=== PATIENT | male | born 1950 | race Caucasian/White ===

== ENCOUNTER 2019-05-24 06:48 | Inpatient (IN) | payer MEDICARE, BC ==
[2019-05-24] MEDS ORDERED: NS 0.9% 1000 ML** 1,000 ML IV SCH (08:00)
[2019-05-24] MEDS ORDERED: HYDROmorphone INJ1* 1 MG/ML SYRINGE IV SLOW PU PRN (08:41)
[2019-05-24] MEDS: Pantoprazole* 80 mg IN NS 80 MG/250 ML BAG IV SCH ×2 (09:02→21:01)
--- NOTE | 2019-05-24 10:26 | HP ---
CC: Dr. Ranjit Caldwell; [facility] * HISTORY AND PHYSICAL: DATE OF ADMISSION: 05/24/19 PRIMARY CARE DOCTOR: Dr. Ranjit Caldwell. HISTORY OF PRESENT ILLNESS: I was contacted in the overnight by the physician assistant toddler teacher admitting service at [facility] with regard to Mr. Shields stating that he was 68-year-old gentleman who presented to the emergency room last night with severe abdominal pain. Workup was negative including CAT scan and labs and the patient was admitted for observation. The patient worsened in the overnight, spiked fever to 104, underwent an x-ray which showed free air under the diaphragm at approximately 4 o'clock a.m. and the patient went for a CT scan. CT scan was with IV contrast and the images were reviewed. It shows a large amount of free air under the diaphragm along with free fluid and I asked the patient to be sent to the emergency room. I was told that this will not be available since the patient has already been admitted to the hospitalist service and I requested the patient to be transferred from hospitalist to hospitalist. This was agreed upon apparently and the patient was transferred here. The patient gives a history of 2 weeks of upper abdominal pain with nausea, vomiting, and weight loss. The patient had been worked up including an ultrasound of the gallbladder, which showed sludge, but no stones. He was in the process of getting a HIDA scan through his primary care doctor when his pain worsened and was much more acute. He presented to the ER with this complaint. He had no appetite, had difficult time moving. Pain was exacerbated with movement, relieved with narcotics. The patient was given narcotics with minimal effect in the emergency room, but then improved with what he says was ibuprofen. I am not able to view this med rec sheet. He was also burping a fair amount as well. He denied any constipation or obstipation. PAST MEDICAL HISTORY: Kidney stones and history of thyroiditis. PAST SURGICAL HISTORY: Right inguinal hernia repair, stents for nephrolithiasis , and a tonsillectomy remotely. MEDICATIONS: Really none. The patient had been taking Tums leading up to this. Generally does not take medications. FAMILY HISTORY: Contributory for esophageal cancer in his father as well as colon cancer requiring a colostomy. SOCIAL HISTORY: He quit smoking 9 months ago. He lives with his . He denies alcohol use or IV drug use. He is retired. REVIEW OF SYSTEMS: No shortness of breath. The patient has good exercise tolerance at baseline. He denies any cardiac disease. Abdominal pain as described. He takes Tums intermittently. He was told he has possible gallbladder disease. He denies any dysuria. No constipation or obstipation. The patient has had colonoscopy in the past with polyps and diverticula. The patient has had EGD because of his father's esophageal cancer and this was suggestive of a hiatal hernia. These were done at [facility] and I do not have the reports. No endocrine disorders. No headaches. No bleeding or clotting disorders. No psychiatric illnesses. PHYSICAL EXAMINATION GENERAL: He is alert and oriented x3. He is in mild distress. VITAL SIGNS: The patient's temperature is 100.2, heart rate 120, blood pressure 127/83, O2 sat 94, respiration rate 21. HEAD, EYES, EARS, NOSE, AND THROAT: Normocephalic, atraumatic. Sclerae are anicteric. Mucous membranes are dry. NECK: No lymphadenopathy. LUNGS: Clear to auscultation at the apices. Positive CVA tenderness on the right. ABDOMEN: Tense, tender with positive voluntary guarding and involuntary guarding and negative rebound. EXTREMITIES: Within normal limits. No mottling, no pitting edema. RECTAL: Not performed. DIAGNOSTIC STUDIES/LAB DATA: Labs through the other hospital show white count of 14, H and H 14/43. Chemistry panel reviewed. The patient had had an amylase that was normal and LFTs that were within normal range. Calcium was mildly elevated. Lactic acid was also 2.7 yesterday evening. Blood cultures were taken on patient's slight fever. CAT scan reviewed. No report available for the second CAT scan the patient received during the hospital at [place]. The patient perhaps did receive a dose of ertapenem at 4 a.m. this morning according to report as well as Flagyl. IMPRESSION: A 68-year-old gentleman otherwise healthy with 2-week prodrome of abdominal pain mostly in the upper abdomen with nausea, vomiting, and possibly ulcer oriented, who now has significant free air and acute abdomen on evaluation , most likely consistent with perforated stomach or duodenal ulcer. I told the patient he would need the operating room as my recommendation. He agreed. He would like to proceed in this fashion, talked about the possibility of laparoscopy versus laparotomy. The patient is okay. I have also talked about the possibility of a different surgeon doing the procedure, which he is okay with. We talked about Shaw plication versus resection and various reconstruction methods namely possibility of a Alejandrina Y gastric bypass versus the possibility of this being a colon disease and requiring colostomy. The patient is aware of this. His questions were answered. He is getting IV fluids. He will have a Adams catheter placed. No NG tube is necessary at this time. The patient has been given antibiotics and will be given another dose before the surgery and the patient is aware of the plan and the nursing staff as well. I will be contacting the critical care team as well for evaluation. [id number]/[facility] #: [id number] MTDD
[2019-05-24] MEDS ORDERED: Propofol* 10 MG/ML 20 ML BTL ONE (10:29)
[2019-05-24] MEDS ORDERED: Midazolam* 1 MG/ML 5 ML VIAL (5 MG) ONE (10:30)
[2019-05-24] MEDS ORDERED: Rocuronium* 10 MG/ML VIAL ONE (10:30)
[2019-05-24] MEDS ORDERED: fentaNYL* 50 MCG/ML 2 ML VIAL (100 MCG VIAL) ONE ×2 (10:30→12:46)
[2019-05-24] MEDS ORDERED: Bupivacaine 0.25% EPI 200,000* 30 ML SDV ONE (10:34)
[2019-05-24] MEDS ORDERED: metroNIDAZOLE IV 500 MG/100ML* 500 MG/100 ML BAG IVPB ONE (11:02)
[2019-05-24] MEDS ORDERED: Ciprofloxacin 400MG IVPREMIX(* 400 MG/200 ML BAG ONE (11:02)
[2019-05-24] MEDS ORDERED: Clindamycin 900 MG/D5W BAG(*) 900 MG/50 ML BAG IVPB ONE (11:16)
[2019-05-24] MEDS ORDERED: Norepinephrine VIAL* 1 MG/ML 4 ML VIAL ONE (12:08)
[2019-05-24] MEDS ORDERED: Phenylephrine 40 MCG/ML SYRINGE ONE (12:08)
--- NOTE | 2019-05-24 12:30 | CONS ---
CC: Dr. Banks; Dr. Kaleb Jama CONSULTATION DATE OF ADMISSION: 05/24/19 PRIMARY CARE PROVIDER: Dr. Kaleb Jama. CHIEF COMPLAINT: Abdominal pain, sent from [facility] because of pneumoperitoneum. HISTORY OF PRESENTING ILLNESS: This is a 68-year-old male with past medical history of gastritis, hiatal hernia, who had presented to the emergency room at [facility] because of abdominal pain. The patient reports that for the past week, he had been dealing with constipation and about 3 days prior to admission he took Dulcolax, after which he had a bowel movement. Yesterday, he started to experience 11/10 pain, it was generalized pain, however more noticeable at the left lower quadrant and the left upper quadrant, associated with nausea and vomiting. The pain is described as a sharp pain that comes in spasms; however, the pain is always there with no relation to activity or food intake. He has decreased appetite since the pain started. Since the pain started, he has not had a bowel movement. He decided to go to the emergency room at [facility] for further evaluation and care. In the emergency room at [facility], he had basic imaging and lab work done , at which point, they found him to have pneumoperitoneum and the patient was given IV fluids, pain medication along with ertapenem and Flagyl and pantoprazole and nausea medication. Subsequently, the patient was then referred to our hospital and was transferred here for further evaluation and care. Here, the patient has been evaluated by general surgeon, Dr. Banks, plan is for the patient to go to the operating room today for the definitive treatment and diagnosis for the pneumoperitoneum. PAST MEDICAL HISTORY: Includes gastritis, hiatal hernia, kidney stones, hemorrhoids, BPH. PAST SURGICAL HISTORY: Includes inguinal hernia. ALLERGIES: Include WELLBUTRIN, BUPROPION, KEFLEX, CIPRO, PENICILLIN, VALACYCLOVIR. FAMILY HISTORY: Mother: Dementia. Father: Esophageal cancer, colon cancer, hypertension, ulcer. SOCIAL HISTORY: The patient lives at home, is , former smoker 1 to 2 packs per day, quit about 9 months ago, no alcohol use. HOME MEDICATIONS: 1. Soma as needed 2. Ambien as needed 3. Tums as needed. REVIEW OF SYSTEMS: He was noted to have subjective fever at home and was found to have fever at the emergency room in [place], fever of 104. HEENT: Not have any issues with his hearing or vision, no sore throat. Reports that he does have trouble taking a deep breath because of abdominal pain; however, no cough, no sputum protection. He does not have any chest pain, no palpitation. Gastrointestinal: See HPI. He does not have any polyuria, trouble with urination, no burning with urination, there are no rashes or lesions. Musculoskeletal: No reported back pain. Skin: No rashes or lesions. Neurological: Reports no headaches, no focal weakness and numbness. Hematological/lymphatic: He does not have any history of easy bruising or recent bleeding episodes. PHYSICAL EXAMINATION GENERAL: This is a well-developed, well-nourished male, lying in an ICU bed in mild distress. VITAL SIGNS: Here, the blood pressure is 127/83, saturation of 94% on room air , respiratory rate of 21, heart rate of 126, temperature here of 100.2 Fahrenheit. HEENT: Pupils are equal, round, and reactive to light, atraumatic, normocephalic. There is no oropharyngeal erythema, oral mucosa is dry, there is no nystagmus. LUNGS: Mild tachypnea with no use of accessory muscles. Lungs are clear with no wheezing, rales, or rhonchi. HEART: There is no chest wall tenderness, regular tachycardia with no murmurs, rubs or gallops. ABDOMEN: Bowel sounds are hypoactive on the left side. Abdomen is soft with generalized tenderness with some guarding; however, no rigidity, no rebound tenderness. Negative Segal's sign. EXTREMITIES: Radial pulses 2+ bilaterally, there is no calf tenderness, no lower extremity edema. NEUROLOGICAL: Alert and oriented x3 with no focal neurological deficit. SKIN: There are no rashes or lesions. Skin is warm and dry. PSYCHIATRIC: The patient is calm and appropriate, with no thoughts of hurting himself or anyone else. IMAGING AND LABORATORY DATA: The patient had a CT of the abdomen and pelvis done at [facility], which showed large pneumoperitoneum with moderate free fluid in the abdomen consistent with perforation of hollow viscus, inflamed gastric pylorus, and proximal duodenum suggestive of perforated peptic ulcer. There is bilateral nonobstructing nephrolithiasis. There is colonic diverticulosis. There is gallbladder sludge, mildly enlarged prostate. There is no acute diverticulitis. The patient also had labs done, which showed a sodium of 140, potassium of 3.6, chloride of 102, bicarb of 25, BUN of 18, creatinine of 1.5, lactic acid of 2.7 , alkaline phosphatase of 96, troponin of 0.01, albumin of 3.6, TSH of 3.48. Also, there was WBC of 14, RBC of 4.83, hemoglobin of 14.7, hematocrit of 43, platelets of 291. Urinalysis was clear with pH of 6.5, negative for nitrites, negative for bilirubin, 1+ blood, 1+ ketones. IMPRESSION AND PLAN: 1. Pneumoperitoneum: This likely is secondary to perforated ulcer as reported in the CAT scan report. The patient will be placed n.p.o., continue IV fluids, we will start pain control. Surgery has evaluated the patient. Plan is for the patient to go to the operating room. At this point, continue pantoprazole drip, Zofran as needed for nausea. Continue ICU level of care. I will start the patient empirically on antibiotics to cover for GI pathology. I will also obtain CBC and CMP as we do not have one in our system yet. Of note, the patient also had a repeat blood work at [facility] this morning, which revealed WBC of 2.62 as well as hemoglobin of 13.1, hematocrit of 37.8. At this point, the patient does meet systemic inflammatory response syndrome criteria. 2. DVT prophylaxis. We will start the patient on sequential compression device. 3. Code status: FULL CODE. [id number]/[facility] #: [id number] MTDD
[2019-05-24] MEDS ORDERED: Sugammadex * 200 MG/2 ML VIAL IV PUSH ONE (12:59)
[2019-05-24] MEDS ORDERED: HYDROmorphone PCA* 20 MG/20 ML PCA.SYRING ONE (13:47)
[2019-05-24] MEDS: Lactated Ringers 1000 ML Bag* 1,000 ML IV SCH ×2 (14:38→20:17)
[2019-05-24] MEDS: NS 0.9% 1000 ML** 1,000 ML IV SCH (14:43)
[2019-05-24 15:45] LABS: Urine Appearance Clear; Urine Bacteria Absent (Absent); Urine Bilirubin Negative (Negative); Urine Blood 1+ (Negative); Urine Color Yellow; Urine Glucose Negative (Negative); Urine Ketones Negative (Negative); Urine Nitrite Negative (Negative); Urine Protein 1+(30 mg/dL) (Negative); Urine Red Blood Cell 2+(6-10/hpf) (Absent); Urine Specific Gravity 1.027 (1.010-1.030); Urine Urobilinogen Positive (Negative); Urine White Blood Cell Trace(0-5/hpf) (Absent)
[2019-05-24] MEDS ORDERED: HYDROmorphone PCA* 20 MG/20 ML PCA.SYRING PCA SCH (16:00)
[2019-05-24] MEDS: Aztreonam (*) 1 GM in NS 0.9% 50 ML* 50 ML IVPB SCH ×2 (16:24→18:07)
[2019-05-24] MEDS: metroNIDAZOLE IV 500 MG/100ML* 500 MG/100 ML BAG IVPB SCH ×2 (16:24→20:57)
[2019-05-25] MEDS: Lactated Ringers 1000 ML Bag* 1,000 ML IV SCH ×4 (01:20→17:54)
[2019-05-25] MEDS: Aztreonam (*) 1 GM in NS 0.9% 50 ML* 50 ML IVPB SCH ×3 (02:38→17:54)
[2019-05-25] MEDS: metroNIDAZOLE IV 500 MG/100ML* 500 MG/100 ML BAG IVPB SCH ×3 (03:26→18:55)
[2019-05-25] MEDS: NS 0.9% 1000 ML** 1,000 ML IV SCH (06:04)
[2019-05-25] MEDS: Pantoprazole* 80 mg IN NS 80 MG/250 ML BAG IV SCH ×2 (06:10→16:22)
[2019-05-25 06:20] LABS: Hematocrit 38 % (42-52); Hemoglobin 12.7 g/dL (14.0-18.0); Mean Corpuscular HGB Conc 33 g/dL (31-36); Mean Corpuscular Hemoglobin 30 pg (27-31); Mean Corpuscular Volume 91 fL (80-94); Mean Platelet Volume 9.1 fL (7.4-10.4); Platelet Count 161 10^3/uL (150-450); Red Blood Count 4.19 10^6 /uL (4.18-5.48); Red Cell Distribution Width 15 % (10-15); White Blood Count 13.3 10^3/uL (3.5-10.8)
[2019-05-25 06:51] LABS: Albumin 2.7 g/dL (3.2-5.2); Calcium 9.1 mg/dL (8.6-10.3); Potassium 4.4 mmol/L (3.5-5.0)
[2019-05-25 06:57] LABS: Albumin/Globulin Ratio 1.5 (1-3); BUN/Creatinine Ratio 20.9 (8-20); Globulin 1.8 g/dL (2-4); Total Protein 4.5 g/dL (6.4-8.9)
[2019-05-25 08:28] LABS: ABS Lymphocytes 0.7 10^3/ul (1.0-4.8); ABS Monocytes 0.7 10^3/ul (0-0.8); ABS Neutrophils 11.8 10^3/ul (1.5-7.7); Lymphocyte % 5.6 %
--- NOTE | 2019-05-25 10:44 | PN ---
Subjective Date of Service: 05/25/19 Interval History: Pt is feeling ok. He continues to have fairly significant discomfort when taking a deep breath or moving. Overall however he states he feels much better than when he arrived to [facility]. He has no nausea. He does have dry mouth. No flatus. Objective Active Medications: Pantoprazole Sodium (Protonix Iv Bag*) 80 mg in 250 mls @ 25 mls/hr IV Q10H [facility] ; Protocol Last Admin: 05/25/19 06:10 Dose: 25 mls/hr Aztreonam 1 gm/ Sodium (Chloride) 50 mls @ 200 mls/hr IVPB Q8H [facility] Last Admin: 05/25/19 02:38 Dose: 200 mls/hr Metronidazole/Sodium Chloride (Flagyl 500 Mg Ivpb*) 500 mg in 100 mls @ 100 mls /hr IVPB Q8H [facility] Last Admin: 05/25/19 03:26 Dose: 100 mls/hr Lactated Ringer's (Lactated Ringers 1000 Ml Bag*) 1,000 mls @ 200 mls/hr IV PER RATE [facility] Last Admin: 05/25/19 07:45 Dose: 200 mls/hr Sodium Chloride (Ns 0.9% 1000 Ml) 1,000 mls @ 30 mls/hr IV PER RATE [facility] Last Admin: 05/25/19 06:04 Dose: 30 mls/hr Hydromorphone HCl (Dilaudid Supervising Broker*) 20 mg in 20 mls @ 0 mls/hr OIL FIRE SPECIALIST .change Q24H [facility]; Protocol Ondansetron HCl (Zofran Inj*) 4 mg IV Q6H PRN PRN Reason: NAUSEA Vital Signs - 8 hr 05/25/19 05/25/19 05/25/19 03:00 03:24 04:09 Temperature 98.7 F Pulse Rate 88 Respiratory 18 16 17 Rate Blood Pressure 117/69 (mmHg) O2 Sat by Pulse 99 98 99 Oximetry 05/25/19 05/25/19 05/25/19 06:05 07:00 07:29 Temperature 97.4 F Pulse Rate 81 Respiratory 17 16 16 Rate Blood Pressure 114/66 (mmHg) O2 Sat by Pulse 96 97 98 Oximetry 05/25/19 05/25/19 05/25/19 08:00 08:21 08:24 Temperature Pulse Rate Respiratory 16 16 16 Rate Blood Pressure (mmHg) O2 Sat by Pulse 96 96 Oximetry 05/25/19 09:00 Temperature Pulse Rate Respiratory 16 Rate Blood Pressure (mmHg) O2 Sat by Pulse 96 Oximetry Oxygen Devices in Use Now: Nasal Cannula Appearance: Middle aged male lying in bed, NAD Eyes: No Scleral Icterus Ears/Nose/Mouth/Throat: Mucous Membranes Moist Respiratory: Symmetrical Chest Expansion and Respiratory Effort, Clear to Auscultation - anteriorly Cardiovascular: NL Sounds; No Murmurs; No JVD, RRR, No Edema Abdominal: - - BS+ soft, ND, tender Extremities: No Clubbing, Cyanosis Skin: No Nodules or Sclerosis Neurological: Alert and Oriented x 3 Result Diagrams: 05/25/19 05:54 05/25/19 05:54 Microbiology and Other Data: Microbiology 05/24/19 08:55 Nasal Screen MRSA (PCR) - Final Nasal Mrsa Not Detected Assess/Plan/Problems-Billing Mr Shields is a 68 yo M who has no significant PMHx who presented initally to [facility] with c/o abdominal pain which acutely worsened while at [facility] and was found to have pneumoperitoneum and transferred to [facility] for surgical evaluation. - Patient Problems (1) Perforated gastric ulcer Current Visit: Yes Status: Acute Code(s): K25.5 - CHRONIC OR UNSPECIFIED GASTRIC ULCER WITH PERFORATION SNOMED Code(s): 2520616 Comment: Pt is POD#1 from Shaw plication of perforated gastric ulcer and abdominal washout. He remains NPO with NG tube in place. MICHI drain with turbid yellow/brown fluid, scant drainage on dressing (dressing not removed by myself) . Continue aztreonam and flagyl. Will discuss with ID how long to continue Abx. Continue OIL FIRE SPECIALIST for pain control. He states he had a slight "habit" with narcotics when he was younger and wishes to minimize narcotic use but understands in the acute phase his pain should be adequately controlled. Await further recommendations from surgery. (2) DVT prophylaxis Current Visit: Yes Status: Acute Code(s): Z29.9 - ENCOUNTER FOR PROPHYLACTIC MEASURES, UNSPECIFIED SNOMED Code(s): 432475339 Comment: Start SQ heparin when ok'ed by surgery. (3) Full code status Current Visit: Yes Status: Acute Code(s): Z78.9 - OTHER SPECIFIED HEALTH STATUS SNOMED Code(s): 728831964
[2019-05-25] MEDS: Influenza VAC *QUAD* 2019-20* 0.5 ML SYRINGE IM ONE ×2 (11:30→11:40)
[2019-05-25] MEDS: Pneumococcal *Vac Polyvalent 0.5 ML VIAL IM ONE ×2 (11:31→11:39)
--- NOTE | 2019-05-25 12:56 | PN ---
Progress Note - Progress Note Date of Service: 05/25/19 Note: S: Patient seen w/ Dr. Banks ~ 0900 this a.m. Feels much better vs before surgery, though is using SECURITY SOFTWARE ENGINEER q 1-2 hr. c/o dry mouth. Wants ice cream. O: Vital Signs - 8 hr 05/25/19 05/25/19 05/25/19 06:05 07:00 07:29 Temperature 97.4 F Pulse Rate 81 Respiratory 17 16 16 Rate Blood Pressure 114/66 (mmHg) O2 Sat by Pulse 96 97 98 Oximetry 05/25/19 05/25/19 05/25/19 08:00 08:21 08:24 Temperature Pulse Rate Respiratory 16 16 16 Rate Blood Pressure (mmHg) O2 Sat by Pulse 96 96 Oximetry 05/25/19 05/25/19 05/25/19 09:00 11:00 11:42 Temperature 98.4 F Pulse Rate 100 Respiratory 16 18 16 Rate Blood Pressure 106/82 (mmHg) O2 Sat by Pulse 96 94 97 Oximetry 05/25/19 12:00 Temperature Pulse Rate Respiratory 17 Rate Blood Pressure (mmHg) O2 Sat by Pulse 93 Oximetry Intake and Output Last 24 Hours 05/23/19 05/24/19 05/25/19 05/26/19 06:59 06:59 06:59 06:59 Intake Total 7417 913 Output Total 1911 60 Balance 5506 853 Weight 171 lb 8 oz Intake: IV Fluids 7157 858 CLINDAMYCIN 900MG IV 50 LR 5980 858 NS (0.9%) 800 Protonix 327 IVPB 160 55 ABX - AZTREONAM 50 55 ABX - FLAGYL 110 Oral 0 NG Tube Irrigate Amount 100 Output: NG Tube Drainage Amount 220 MICHI #1 390 40 MICHI #2 130 20 Adams 1121 Estimated Blood Loss 50 Other: # Bowel Movements 0 # Voids 0 Gen: appears comfortable; NAD Heart: reg Lungs: clear Abd: MICHI drains serosang; moderate drainage on dsg; few BS; somewhat firm, diffusely tender per Dr. Banks's exam A: s/p laparoscopic terry patch of perf'd gastric ulcer, improving P: will keep NG for now; UGI tomorrow a.m. Cont IV PPI
[2019-05-25] MEDS: Phenol 1.4% Spray* 177 ML BTL MT PRN ×2 (16:22→23:54)
--- NOTE | 2019-05-25 22:02 | OP ---
CC: Dr. Kaleb Jama; [facility] * DATE OF OPERATION: 05/24/19 - ROOM #338 DATE OF : 54 SURGEON: Amado Banks MD. COAT REPAIR INSPECTOR: Radha Rodriguez NP. ANESTHESIOLOGIST: Dr. Shultz. ANESTHESIA: General. PRE-OP DIAGNOSIS: Acute abdomen. POST-OP DIAGNOSIS: Perforated gastric ulcer, prepyloric. OPERATIVE PROCEDURES: Diagnostic laparoscopy abdominal washout, biopsy of perforated ulcer, and Shaw plication of perforated gastric ulcer. ESTIMATED BLOOD LOSS: 50 cc. FLUIDS: Crystalloid fluid given. See anesthesia record for details. SPECIMEN: Portion of stomach ulcer. DRAINS: Two #10 MICHI drains left in the intraabdominal space. The right upper quadrant one was over the Shaw plication and under the liver, the lower one was at the mid abdomen anteriorly. COMPLICATIONS: None. DESCRIPTION OF PROCEDURE: The patient was identified in the preoperative area. He was marked, consented, brought to the operating room, and placed on the operating table in the supine position. Preoperative antibiotics given. Sequential devices were placed on the bilateral lower extremities. General anesthesia was induced. Adams catheter was inserted. The patient's abdominal hair was clipped, and the abdomen was prepped and draped in standard surgical fashion x4. Cutdown technique was performed at the periumbilical region and cutdown technique down to the abdomen. Air was expressed upon entry, but no fluid and a 12 mm trocar was inserted. This was later changed for a balloon type trocar. Camera was inserted. There was a significant amount of murky fluid throughout the abdomen. Additional trocars were then placed in the following position, a 5 mm in the right upper quadrant and a 5 mm in the right lower quadrant. Attention was turned towards the anterior aspect of the stomach. An opened ulcer was noted, prepyloric. It was approximately 1 cm in size. The gallbladder appeared normal. There was fluid over the liver and over the spleen well throughout the abdomen. After suctioning out the fluid, attention was turned towards the ulcer. A biopsy was then performed and passed off. This was mostly mucosa, which appeared pink, but not malignant appearing. We then placed 3-0 silk sutures, 4 individual sutures in all, through and through the ulcer. Next, with cautery, we were able to make a tongue of omentum and place this over the ulcer, and we plicated this on to our ulcer and tied our silk sutures. The ulcer was obscured after the closure of this. We then placed two #10 MICHI drains in the abdomen, placed one at [place] pouch, extending it towards the ulcer and just anterior to this, and this was brought out through the right upper quadrant 5 mm port site, sutured to the skin with 3-0 Prolene suture, and another drain was placed in the mid abdomen and brought out through the right lower quadrant incision and sutured similarly. The abdomen was allowed to collapse and trocar was removed under direct vision. It should be noted that we did irrigate approximately 4 L of warm saline prior to closing the abdomen. The anterior fascia of the umbilical port site was reapproximated with interrupted #1 Vicryl sutures and skin incision at this site was closed with 4- 0 Monocryl subcuticular sutures followed by Steri-Strips and sterile dressing. The patient tolerated the procedure well and was transferred to the PACU in stable condition. [id number]/[facility] #: [id number] FAYE
[2019-05-26] MEDS: Lactated Ringers 1000 ML Bag* 1,000 ML IV SCH ×3 (00:16→19:17)
[2019-05-26] MEDS: Pantoprazole* 80 mg IN NS 80 MG/250 ML BAG IV SCH (02:20)
[2019-05-26] MEDS: Aztreonam (*) 1 GM in NS 0.9% 50 ML* 50 ML IVPB SCH ×3 (02:20→18:12)
[2019-05-26] MEDS: metroNIDAZOLE IV 500 MG/100ML* 500 MG/100 ML BAG IVPB SCH ×3 (03:17→19:18)
[2019-05-26 05:51] LABS: Hematocrit 36 % (42-52); Hemoglobin 12.3 g/dL (14.0-18.0); Mean Corpuscular HGB Conc 34 g/dL (31-36); Mean Corpuscular Hemoglobin 31 pg (27-31); Mean Corpuscular Volume 90 fL (80-94); Mean Platelet Volume 9.4 fL (7.4-10.4); Platelet Count 165 10^3/uL (150-450); Red Blood Count 4.01 10^6 /uL (4.18-5.48); Red Cell Distribution Width 15 % (10-15); White Blood Count 12.2 10^3/uL (3.5-10.8)
[2019-05-26 06:05] LABS: BUN/Creatinine Ratio 27.8 (8-20); Calcium 9.1 mg/dL (8.6-10.3); EGFR African American 102.2 (>60); EGFR Non-African American 84.4 (>60); Potassium 4.1 mmol/L (3.5-5.0)
[2019-05-26] MEDS: Pantoprazole IV* 40 MG IV SCH ×2 (09:01→21:12)
--- NOTE | 2019-05-26 11:32 | PN ---
Progress Note - Progress Note Date of Service: 05/26/19 Note: S: POD #2. Less pain, though still using FREIGHT FLOW SALES LEADER 1-2x/hr. No N/V. Ambulating. O: Vital Signs - 8 hr 05/26/19 05/26/19 05/26/19 04:00 04:52 06:17 Temperature Pulse Rate Respiratory 16 18 18 Rate Blood Pressure (mmHg) O2 Sat by Pulse 96 96 95 Oximetry 05/26/19 05/26/19 05/26/19 06:54 07:00 08:00 Temperature 98 F Pulse Rate 91 Respiratory 17 18 18 Rate Blood Pressure 141/79 (mmHg) O2 Sat by Pulse 92 97 97 Oximetry 05/26/19 05/26/19 09:00 10:00 Temperature Pulse Rate Respiratory 18 18 Rate Blood Pressure (mmHg) O2 Sat by Pulse 97 97 Oximetry Intake and Output Last 24 Hours 05/24/19 05/25/19 05/26/19 05/27/19 06:59 06:59 06:59 06:59 Intake Total 7417 4138 0 Output Total 1911 1635 0 Balance 5506 2503 0 Weight 171 lb 8 oz Intake: IV Fluids 7157 3978 CLINDAMYCIN 900MG IV 50 LR 5980 3728 NS (0.9%) 800 Protonix 327 250 IVPB 160 160 ABX - AZTREONAM 50 55 ABX - FLAGYL 110 105 Oral 0 0 0 NG Tube Irrigate Amount 100 Output: NG Tube Drainage Amount 220 200 0 MICHI #1 390 230 0 MICHI #2 130 80 0 Ball 1121 1125 0 Estimated Blood Loss 50 Other: # Bowel Movements 0 0 0 # Voids 0 Gen: appears well, sitting up in bed; NAD Heart: reg Lungs: clear Abd: lap sites ok; MICHI drains: one w/ clear serosang drainage, the other has more cloudly, slightly yellow drainage Extr: SCDs in place Labs: Laboratory Tests 05/26/19 05:24 WBC 12.2 H Hgb 12.3 L UGI this a.m.: Indication: Perforated gastric ulcer. Fluoroscopic and radiographic examination of the esophagus was performed utilizing water-soluble contrast. 1.4 minutes of fluoroscopy time was used. The esophagus appears grossly unremarkable. Gastric silhouette is grossly unremarkable in the AP and lateral position with no evidence of extraluminal contrast. Slow transit into the small bowel is noted. IMPRESSION: No extraluminal contrast. Slow transit into the small bowel. A: s/p lap patch of perf'd gastric ulcer, improving P: UGI reviewed w/ Dr. Banks. Will order plain film to look for progression of contrast and r/o leak. D/C ball
--- NOTE | 2019-05-26 11:57 | PN ---
Subjective Date of Service: 05/26/19 Interval History: Pt is feeling better today. Less pain but he is still needing the BURR FILER. No flatus. He would like to start eating. Objective Active Medications: Aztreonam 1 gm/ Sodium (Chloride) 50 mls @ 200 mls/hr IVPB Q8H [facility] Last Admin: 05/26/19 10:16 Dose: 200 mls/hr Metronidazole/Sodium Chloride (Flagyl 500 Mg Ivpb*) 500 mg in 100 mls @ 100 mls /hr IVPB Q8H [facility] Last Admin: 05/26/19 10:48 Dose: 100 mls/hr Lactated Ringer's (Lactated Ringers 1000 Ml Bag*) 1,000 mls @ 200 mls/hr IV PER RATE [facility] Last Admin: 05/26/19 06:58 Dose: 200 mls/hr Sodium Chloride (Ns 0.9% 1000 Ml) 1,000 mls @ 30 mls/hr IV PER RATE [facility] Last Admin: 05/25/19 06:04 Dose: 30 mls/hr Hydromorphone HCl (Dilaudid Store Associate*) 20 mg in 20 mls @ 0 mls/hr BURR FILER .change Q24H [facility]; Protocol Ondansetron HCl (Zofran Inj*) 4 mg IV Q6H PRN PRN Reason: NAUSEA Pantoprazole Sodium (Protonix Iv*) 40 mg IV Q12H [facility] Last Admin: 05/26/19 09:01 Dose: 40 mg Phenol/Menthol (Chloroseptic Throat [place]*) 2 spray MT Q4HR PRN PRN Reason: SORE THROAT Last Admin: 05/25/19 23:54 Dose: 1 oral.spray Vital Signs - 8 hr 05/26/19 05/26/19 05/26/19 04:00 04:52 06:17 Temperature Pulse Rate Respiratory 16 18 18 Rate Blood Pressure (mmHg) O2 Sat by Pulse 96 96 95 Oximetry 05/26/19 05/26/19 05/26/19 06:54 07:00 08:00 Temperature 98 F Pulse Rate 91 Respiratory 17 18 18 Rate Blood Pressure 141/79 (mmHg) O2 Sat by Pulse 92 97 97 Oximetry 05/26/19 05/26/19 09:00 10:00 Temperature Pulse Rate Respiratory 18 18 Rate Blood Pressure (mmHg) O2 Sat by Pulse 97 97 Oximetry Oxygen Devices in Use Now: Nasal Cannula Appearance: Middle aged male sitting up in bed, NAD Eyes: No Scleral Icterus Ears/Nose/Mouth/Throat: Mucous Membranes Moist Respiratory: Symmetrical Chest Expansion and Respiratory Effort, Clear to Auscultation Cardiovascular: NL Sounds; No Murmurs; No JVD, RRR, No Edema Abdominal: - - BS hypoactive, soft, ND Extremities: No Clubbing, Cyanosis Skin: No Nodules or Sclerosis Neurological: Alert and Oriented x 3 - Nutrition: Malnutrition Diagnosis/Plan Malnutrition Assessment by Registered Dietitian: Malnutrition Assessment Clinical Characteristics Acute,Severe Malnutrition Assessment: 22 lb (13.3%) wt loss x 1 mo Criteria reduced po intake (<50% EEE) x >5 days Malnutrition Assessment: Pt to remain NPO for now. Post-op diet Interventions progression as tolerated. Consider supplements/ snacks if unable to otherwise meet needs. Malnutrition Assessment: Goals 1. pt will tolerate post-op diet progression without adverse GI effects 2. adequate po intake to maintain lean body mass and hydration without add'l wt loss 3. glycemic control within inpatient parameters and without s/sx hypo- or hyperglycemia 4. achieve and maintain serum electrolytes levels WNL 5. achieve and maintain regulated bowel pattern without c/o constipation (or diarrhea) Result Diagrams: 05/26/19 05:24 05/26/19 05:24 Microbiology and Other Data: Microbiology 05/24/19 08:55 Nasal Screen MRSA (PCR) - Final Nasal Mrsa Not Detected Assess/Plan/Problems-Billing Mr Shields is a 68 yo M who has no significant PMHx who presented initally to [facility] ER with c/o abdominal pain which acutely worsened while at [facility] and was found to have pneumoperitoneum and transferred to [facility] for surgical evaluation. - Patient Problems (1) Perforated gastric ulcer Current Visit: Yes Status: Acute Code(s): K25.5 - CHRONIC OR UNSPECIFIED GASTRIC ULCER WITH PERFORATION SNOMED Code(s): 8908942 Comment: Pt is POD#2 from [facility] plication of perforated gastric ulcer and abdominal washout. He remains NPO with NG tube in place. UGI series done and shows no leak, per surgery plan to get more imaging to ensure progression of contrast and r/o leak. Continue aztreonam and flagyl. Continue BURR FILER for pain control. He states he had a slight "habit" with narcotics when he was younger and wishes to minimize narcotic use but understands in the acute phase his pain should be adequately controlled. Await further recommendations from surgery. (2) DVT prophylaxis Current Visit: Yes Status: Acute Code(s): Z29.9 - ENCOUNTER FOR PROPHYLACTIC MEASURES, UNSPECIFIED SNOMED Code(s): 743206575 Comment: Start SQ heparin when ok'ed by surgery. (3) Full code status Current Visit: Yes Status: Acute Code(s): Z78.9 - OTHER SPECIFIED HEALTH STATUS SNOMED Code(s): 015172916
[2019-05-26] MEDS: Phenol 1.4% Spray* 177 ML BTL MT PRN (14:30)
[2019-05-27] MEDS: Lactated Ringers 1000 ML Bag* 1,000 ML IV SCH ×4 (01:19→18:20)
[2019-05-27] MEDS: Aztreonam (*) 1 GM in NS 0.9% 50 ML* 50 ML IVPB SCH ×3 (02:30→18:17)
[2019-05-27] MEDS: metroNIDAZOLE IV 500 MG/100ML* 500 MG/100 ML BAG IVPB SCH ×3 (03:10→19:10)
[2019-05-27] MEDS: Pantoprazole IV* 40 MG IV SCH ×2 (08:19→20:25)
--- NOTE | 2019-05-27 09:50 | PN ---
Subjective Date of Service: 05/27/19 Interval History: Pt is feeling "better each day." He is going for a walk this AM. His pain is better controlled. The drainage into the MICHI drains is less and the fluid is clearer. He has been allowed to take in some ice chips. Objective Active Medications: Aztreonam 1 gm/ Sodium (Chloride) 50 mls @ 200 mls/hr IVPB Q8H [facility] Last Admin: 05/27/19 02:30 Dose: 200 mls/hr Metronidazole/Sodium Chloride (Flagyl 500 Mg Ivpb*) 500 mg in 100 mls @ 100 mls /hr IVPB Q8H [facility] Last Admin: 05/27/19 03:10 Dose: 100 mls/hr Lactated Ringer's (Lactated Ringers 1000 Ml Bag*) 1,000 mls @ 200 mls/hr IV PER RATE [facility] Last Admin: 05/27/19 07:22 Dose: 200 mls/hr Sodium Chloride (Ns 0.9% 1000 Ml) 1,000 mls @ 30 mls/hr IV PER RATE [facility] Last Admin: 05/25/19 06:04 Dose: 30 mls/hr Hydromorphone HCl (Dilaudid Production Honing Machine Operator*) 20 mg in 20 mls @ 0 mls/hr AIRCRAFT NAVIGATOR .change Q24H [facility]; Protocol Last Admin: 05/27/19 01:05 Dose: 20 mls/hr Ondansetron HCl (Zofran Inj*) 4 mg IV Q6H PRN PRN Reason: NAUSEA Pantoprazole Sodium (Protonix Iv*) 40 mg IV Q12H [facility] Last Admin: 05/27/19 08:19 Dose: 40 mg Phenol/Menthol (Chloroseptic Throat [place]*) 2 spray MT Q4HR PRN PRN Reason: SORE THROAT Last Admin: 05/26/19 14:30 Dose: 2 oral.spray Vital Signs - 8 hr 05/27/19 05/27/19 05/27/19 03:35 04:00 05:00 Temperature 98.4 F Pulse Rate 87 Respiratory 18 18 18 Rate Blood Pressure 145/79 (mmHg) O2 Sat by Pulse 98 96 96 Oximetry 05/27/19 05/27/19 05/27/19 06:00 06:44 07:00 Temperature Pulse Rate Respiratory 18 18 16 Rate Blood Pressure (mmHg) O2 Sat by Pulse 96 96 96 Oximetry 05/27/19 05/27/19 07:26 07:57 Temperature 97.7 F Pulse Rate 84 Respiratory 16 Rate Blood Pressure 149/79 (mmHg) O2 Sat by Pulse 96 97 Oximetry Oxygen Devices in Use Now: Nasal Cannula Appearance: Middle aged male sitting up in a chair, NAD Eyes: No Scleral Icterus Ears/Nose/Mouth/Throat: Mucous Membranes Moist Respiratory: Symmetrical Chest Expansion and Respiratory Effort, Clear to Auscultation - diminished at the bases Cardiovascular: NL Sounds; No Murmurs; No JVD, RRR, No Edema Abdominal: - - BS hypoactive, soft, ND Extremities: No Clubbing, Cyanosis Skin: No Nodules or Sclerosis Neurological: Alert and Oriented x 3 - Nutrition: Malnutrition Diagnosis/Plan Malnutrition Assessment by Registered Dietitian: Malnutrition Assessment Clinical Characteristics Acute,Severe Malnutrition Assessment: 22 lb (13.3%) wt loss x 1 mo Criteria reduced po intake (<50% EEE) x >5 days Malnutrition Assessment: Pt to remain NPO for now. Post-op diet Interventions progression as tolerated. Consider supplements/ snacks if unable to otherwise meet needs. Malnutrition Assessment: Goals 1. pt will tolerate post-op diet progression without adverse GI effects 2. adequate po intake to maintain lean body mass and hydration without add'l wt loss 3. glycemic control within inpatient parameters and without s/sx hypo- or hyperglycemia 4. achieve and maintain serum electrolytes levels WNL 5. achieve and maintain regulated bowel pattern without c/o constipation (or diarrhea) Result Diagrams: 05/26/19 05:24 05/26/19 05:24 Microbiology and Other Data: Microbiology 05/24/19 08:55 Nasal Screen MRSA (PCR) - Final Nasal Mrsa Not Detected Assess/Plan/Problems-Billing Mr Shields is a 68 yo M who has no significant PMHx who presented initally to [place] ER with c/o abdominal pain which acutely worsened while at [place] and was found to have pneumoperitoneum and transferred to [facility] for surgical evaluation. - Patient Problems (1) Perforated gastric ulcer Current Visit: Yes Status: Acute Code(s): K25.5 - CHRONIC OR UNSPECIFIED GASTRIC ULCER WITH PERFORATION SNOMED Code(s): 2524107 Comment: Pt is POD#3 from [facility] plication of perforated gastric ulcer and abdominal washout. NG tube removed. He is on ice chips only at this time. Continue aztreonam and flagyl until taking po's then change to bactrim and flagyl x7 days. Minimize narcotics as pain improves. Management per general surgery. (2) DVT prophylaxis Current Visit: Yes Status: Acute Code(s): Z29.9 - ENCOUNTER FOR PROPHYLACTIC MEASURES, UNSPECIFIED SNOMED Code(s): 243043913 Comment: Start SQ heparin when ok'ed by surgery. (3) Full code status Current Visit: Yes Status: Acute Code(s): Z78.9 - OTHER SPECIFIED HEALTH STATUS SNOMED Code(s): 528542865
[2019-05-27] MEDS: NS 0.9% 1000 ML** 1,000 ML IV SCH (10:21)
--- NOTE | 2019-05-27 10:49 | PN ---
Progress Note - Progress Note Date of Service: 05/27/19 SOAP: Subjective: C/O Cramping overnight, but tolerated ice chips, happy to have NGT out - Flatus , + Ambulating [] Objective: Vital Signs Temp 97.7 F 05/27/19 07:57 Pulse 84 05/27/19 07:57 Resp 18 05/27/19 10:51 BP 149/79 05/27/19 07:57 Pulse Ox 97 05/27/19 10:00 Intake & Output 05/26/19 05/27/19 05/27/19 18:59 06:59 18:59 Intake Total 3209 1613 1690 Output Total 1320 935 440 Balance 9699 769 2090 Intake: IV Fluids 1459 1485 LR 1459 990 NS (0.9%) 495 IVPB 3109 104 205 ABX - AZTREONAM 208 105 ABX - FLAGYL 200 104 100 LR 1519 NS (0.9%) 957 Protonix 225 Oral 0 50 0 NG Tube Irrigate Amount 100 Output: NG Tube Drainage Amount 300 300 MICHI #1 260 100 40 MICHI #2 10 35 Urine 200 500 400 [place] 500 Estimated Blood Loss 50 Other: # Bowel Movements 0 0 PEX: Chest: CTA CVS: RRR ABD: soft + Tender, Hypo BS's More tender LUQ, MICHI drains RLQ 1 clear, 1 with yanes output EXT: calves soft, non tender [] Assessment: POD#3 S/P Lap [facility] patch repair of Perf Gastric Ulcer. Continues with PMO MANAGER tolerated ice chips [] Plan: Advance to clears, D/C PMO MANAGER, change to PRN Dilaudid, add Toradol, start SQ Heparin, AM labs, cont IV ABX Above D/W DR Banks []
[2019-05-27] MEDS ORDERED: HYDROmorphone INJ* 0.5 MG/0.5 ML SYRINGE IV SLOW PU PRN (11:29)
[2019-05-27] MEDS: Heparin VIAL(*) 5000 UNITS/ML VIAL (FIVE THOUSAND) SUBCUT SCH ×2 (14:50→22:08)
[2019-05-27] MEDS: Ondansetron INJ* 2 MG/ML VIAL IV PRN (18:22)
[2019-05-28] MEDS: Lactated Ringers 1000 ML Bag* 1,000 ML IV SCH ×3 (00:47→15:32)
[2019-05-28] MEDS: Aztreonam (*) 1 GM in NS 0.9% 50 ML* 50 ML IVPB SCH ×3 (02:42→17:40)
[2019-05-28] MEDS: metroNIDAZOLE IV 500 MG/100ML* 500 MG/100 ML BAG IVPB SCH ×3 (03:04→20:01)
[2019-05-28] MEDS: Heparin VIAL(*) 5000 UNITS/ML VIAL (FIVE THOUSAND) SUBCUT SCH ×3 (05:49→22:58)
[2019-05-28] MEDS: Ketorolac INJ* 30 MG/ML 1 ML VIAL IV PUSH PRN ×2 (05:54→17:40)
[2019-05-28 06:13] LABS: ABS Lymphocytes 0.6 10^3/ul (1.0-4.8); ABS Monocytes 1.1 10^3/ul (0-0.8); ABS Neutrophils 7.2 10^3/ul (1.5-7.7); Eosinophil % 0.1 %; Hematocrit 34 % (42-52); Hemoglobin 11.6 g/dL (14.0-18.0); Mean Corpuscular HGB Conc 34 g/dL (31-36); Mean Corpuscular Hemoglobin 30 pg (27-31); Mean Corpuscular Volume 89 fL (80-94); Mean Platelet Volume 8.7 fL (7.4-10.4); Platelet Count 198 10^3/uL (150-450); Red Cell Distribution Width 14 % (10-15)
[2019-05-28] MEDS: Ondansetron INJ* 2 MG/ML VIAL IV PRN ×2 (06:13→17:24)
[2019-05-28 06:24] LABS: BUN/Creatinine Ratio 27.3 (8-20); Calcium 8.3 mg/dL (8.6-10.3); EGFR African American 122.3 (>60); EGFR Non-African American 101.1 (>60); Potassium 3.6 mmol/L (3.5-5.0)
[2019-05-28] MEDS: Pantoprazole IV* 40 MG IV SCH ×2 (09:26→21:48)
--- NOTE | 2019-05-28 10:14 | PN ---
Progress Note - Progress Note Date of Service: 05/28/19 SOAP: Subjective: C/O malaise, no energy. + Flatus, - BM tolerated clears no dilaudid since [employer]TA[employer]OUNGE MANAGER D/C'd C/O RLQ pain near MICHI sites [] Objective: Vital Signs Temp 98.5 F 05/28/19 03:47 Pulse 86 05/28/19 03:47 Resp 16 05/28/19 03:47 BP 109/51 05/28/19 03:47 Pulse Ox 96 05/28/19 03:47 Intake & Output 05/27/19 05/28/19 05/28/19 18:59 06:59 18:59 Intake Total 3667 1342 1130 Output Total 890 50 Balance 2777 1292 1130 Weight 173 lb Intake: IV Fluids 3297 1237 1130 ABX - AZTREONAM 50 ABX - FLAGYL 110 100 LR 2762 1127 980 NS (0.9%) 535 IVPB 370 105 ABX - AZTREONAM 160 105 ABX - FLAGYL 210 Oral 0 0 Output: MICHI #1 90 30 MICHI #2 20 Urine 800 Other: Estimated Void Medium Medium # Bowel Movements 0 # Voids 1 1 Laboratory Last Values WBC 9.0 10^3/uL (3.5-10.8) 05/28/19 05:21 RBC 3.80 10^6 /uL (4.18-5.48) L 05/28/19 05:21 Hgb 11.6 g/dL (14.0-18.0) L 05/28/19 05:21 Hct 34 % (42-52) L 05/28/19 05:21 MCV 89 fL (80-94) 05/28/19 05:21 MCH 30 pg (27-31) 05/28/19 05:21 MCHC 34 g/dL (31-36) 05/28/19 05:21 RDW 14 % (10-15) 05/28/19 05:21 Plt Count 198 10^3/uL (150-450) 05/28/19 05:21 MPV 8.7 fL (7.4-10.4) 05/28/19 05:21 Neut % (Auto) 80.1 % 05/28/19 05:21 Lymph % (Auto) 7.0 % 05/28/19 05:21 [place] % (Auto) 12.5 % 05/28/19 05:21 Eos % (Auto) 0.1 % 05/28/19 05:21 Baso % (Auto) 0.3 % 05/28/19 05:21 Absolute Neuts (auto) 7.2 10^3/ul (1.5-7.7) 05/28/19 05:21 Absolute Lymphs (auto) 0.6 10^3/ul (1.0-4.8) L 05/28/19 05:21 Absolute Monos (auto) 1.1 10^3/ul (0-0.8) H 05/28/19 05:21 Absolute Eos (auto) 0.0 10^3/ul (0-0.6) 05/28/19 05:21 Absolute Basos (auto) 0.0 10^3/ul (0-0.2) 05/28/19 05:21 Absolute Nucleated RBC 0.0 10^3/ul 05/28/19 05:21 Immature Gran % 33.0 % (0-9) H 05/25/19 05:54 Neutrophils % 54.0 % 05/25/19 05:54 Band Neutrophils % 31.0 % (0-8) H 05/25/19 05:54 Lymphocytes % 10.0 % 05/25/19 05:54 Monocytes % 3.0 % 05/25/19 05:54 Metamyelocytes % 2.0 % (0-2) 05/25/19 05:54 Nucleated RBC % 0.0 05/28/19 05:21 Normal RBC Morphology Normal (Normal) 05/25/19 05:54 Sodium 138 mmol/L (135-145) 05/28/19 05:21 Potassium 3.6 mmol/L (3.5-5.0) 05/28/19 05:21 Chloride 109 mmol/L (101-111) 05/28/19 05:21 Carbon Dioxide 23 mmol/L (22-32) 05/28/19 05:21 Anion Gap 6 mmol/L (2-11) 05/28/19 05:21 BUN 21 mg/dL (6-24) 05/28/19 05:21 Creatinine 0.77 mg/dL (0.67-1.17) 05/28/19 05:21 Est GFR ( Amer) 122.3 (>60) 05/28/19 05:21 Est GFR (Non-Af Amer) 101.1 (>60) 05/28/19 05:21 BUN/Creatinine Ratio 27.3 (8-20) H 05/28/19 05:21 Glucose 90 mg/dL (70-100) 05/28/19 05:21 Calcium 8.3 mg/dL (8.6-10.3) L 05/28/19 05:21 Total Bilirubin 1.00 mg/dL (0.2-1.0) 05/25/19 05:54 AST 28 U/L (13-39) 05/25/19 05:54 ALT 21 U/L (7-52) 05/25/19 05:54 Alkaline Phosphatase 49 U/L (34-104) 05/25/19 05:54 Total Protein 4.5 g/dL (6.4-8.9) L 05/25/19 05:54 Albumin 2.7 g/dL (3.2-5.2) L 05/25/19 05:54 Globulin 1.8 g/dL (2-4) L 05/25/19 05:54 Albumin/Globulin Ratio 1.5 (1-3) 05/25/19 05:54 Lipase 28 U/L (11.0-82.0) 05/25/19 05:54 Urine Color Yellow 05/24/19 15:09 Urine Appearance Clear 05/24/19 15:09 Urine pH 5.0 (5-9) 05/24/19 15:09 Ur Specific [place] 1.027 (1.010-1.030) 05/24/19 15:09 Urine Protein 1+(30 mg/dl) (Negative) A 05/24/19 15:09 Urine Ketones Negative (Negative) 05/24/19 15:09 Urine Blood 1+ (Negative) A 05/24/19 15:09 Urine Nitrate Negative (Negative) 05/24/19 15:09 Urine Bilirubin Negative (Negative) 05/24/19 15:09 Urine Urobilinogen Positive (Negative) A 05/24/19 15:09 Ur Leukocyte Esterase Negative (Negative) 05/24/19 15:09 Urine WBC (Auto) Trace(0-5/hpf) (Absent) 10/14/19 15:09 Urine RBC (Auto) 2+(6-10/hpf) (Absent) A 05/24/19 15:09 Urine Bacteria Absent (Absent) 05/24/19 15:09 Urine Glucose Negative (Negative) 05/24/19 15:09 PEX: General: looks well, comfortable in bed NAD. VSSAF Chest: CTA B/L ABD: soft, hypo BS's, + Tender RLQ at MICHI sites. MICHI's both now with decreased output of now clear drainage EXT: calves soft non tender Assessment: 68 yo male POD 4 s/p lap terry patch repair of perf gastric ulcer, tolerating clear liquids. exam improved, patient concerned about lack of energy and no BM. [] Plan: OOB ambulate with asist. Advance diet to full liquids, add Miralax, add regular ensure, continue current management, above d/w Dr Banks. []
[2019-05-28] MEDS ORDERED: Polyethylene Glycol 3350* 17 GM PACKET PO PRN (10:22)
--- NOTE | 2019-05-28 14:44 | PN ---
Progress Note - Progress Note Date of Service: 05/28/19 SOAP: Subjective: Pt seen and examined. Feeling better today. some nausea and small vomit overnight. Pos flatus, loose BM early this am Objective: Temp Pulse Resp BP Pulse Ox 97.5 F 76 16 157/83 94 05/28/19 11:30 05/28/19 11:30 05/28/19 11:30 05/28/19 11:30 05/28/19 11:30 a and o x3, nad lungs clear abdo: tense, less tender, no rebound JPs: serous ext: wnl labs noted Assessment: POD 4 dx lap, terry patch, HD stable Plan: advance diet pain control abx PPi DV proph SACMA top cover tme this weekend
[2019-05-29] MEDS: Aztreonam (*) 1 GM in NS 0.9% 50 ML* 50 ML IVPB SCH ×3 (02:43→18:19)
[2019-05-29] MEDS: metroNIDAZOLE IV 500 MG/100ML* 500 MG/100 ML BAG IVPB SCH ×3 (03:38→21:34)
[2019-05-29 05:33] LABS: ABS Lymphocytes 0.7 10^3/ul (1.0-4.8); ABS Monocytes 1.4 10^3/ul (0-0.8); ABS Neutrophils 4.3 10^3/ul (1.5-7.7); Eosinophil % 0.4 %; Hematocrit 36 % (42-52); Hemoglobin 12.2 g/dL (14.0-18.0); Lymphocyte % 10.3 %; Mean Corpuscular HGB Conc 34 g/dL (31-36); Mean Corpuscular Hemoglobin 30 pg (27-31); Mean Corpuscular Volume 89 fL (80-94); Platelet Count 220 10^3/uL (150-450); Red Blood Count 4.03 10^6 /uL (4.18-5.48); Red Cell Distribution Width 15 % (10-15); White Blood Count 6.4 10^3/uL (3.5-10.8)
[2019-05-29 06:00] LABS: BUN/Creatinine Ratio 24.1 (8-20); Calcium 8.4 mg/dL (8.6-10.3); EGFR African American 112.2 (>60); EGFR Non-African American 92.7 (>60); Potassium 3.4 mmol/L (3.5-5.0)
[2019-05-29] MEDS: Heparin VIAL(*) 5000 UNITS/ML VIAL (FIVE THOUSAND) SUBCUT SCH ×3 (06:27→22:22)
[2019-05-29] MEDS: Pantoprazole IV* 40 MG IV SCH ×2 (08:57→21:23)
[2019-05-29] MEDS: Ondansetron INJ* 2 MG/ML VIAL IV PRN ×2 (09:01→16:29)
--- NOTE | 2019-05-29 11:20 | PN ---
Progress Note - Progress Note Date of Service: 05/29/19 Note: Surgery Progress Note: S: Patient is doing well. He has been ambulating on the floors this morning. His pain is improving daily. He complains of pain mostly from his MICHI drains. He is having bowel function, flatus and regular urine output. He is tolerating a full liquid diet but continues to have belching. No emesis. O: Vital Signs - 24 hr 05/28/19 05/28/19 05/28/19 11:30 15:41 16:00 Temperature 97.5 F 98.0 F Pulse Rate 76 76 Respiratory 16 18 Rate Blood Pressure 157/83 149/73 (mmHg) O2 Sat by Pulse 94 91 91 Oximetry 05/28/19 05/28/19 05/28/19 19:49 19:56 23:24 Temperature 99.1 F 98.0 F Pulse Rate 77 71 Respiratory 18 18 18 Rate Blood Pressure 157/89 157/85 (mmHg) O2 Sat by Pulse 95 96 Oximetry 05/29/19 05/29/19 03:50 08:01 Temperature 98.3 F 98.3 F Pulse Rate 74 72 Respiratory 22 17 Rate Blood Pressure 147/82 165/82 (mmHg) O2 Sat by Pulse 95 95 Oximetry Laboratory Results - last 24 hr 05/29/19 05/29/19 05:14 05:14 WBC 6.4 RBC 4.03 L Hgb 12.2 L Hct 36 L MCV 89 MCH 30 MCHC 34 RDW 15 Plt Count 220 MPV 8.0 Neut % (Auto) 68.0 Lymph % (Auto) 10.3 [place] % (Auto) 21.2 Eos % (Auto) 0.4 Baso % (Auto) 0.1 Absolute Neuts (auto) 4.3 Absolute Lymphs (auto) 0.7 L Absolute Monos (auto) 1.4 H Absolute Eos (auto) 0.0 Absolute Basos (auto) 0.0 Absolute Nucleated RBC 0.0 Nucleated RBC % 0.0 Sodium 139 Potassium 3.4 L Chloride 110 Carbon Dioxide 25 Anion Gap 4 BUN 20 Creatinine 0.83 Est GFR ( Amer) 112.2 Est GFR (Non-Af Amer) 92.7 BUN/Creatinine Ratio 24.1 H Glucose 131 H Calcium 8.4 L Intake & Output 05/28/19 05/29/19 05/29/19 22:59 06:59 14:59 Intake Total 1893 110 120 Output Total 80 45 30 Balance 1813 65 90 Weight 179 lb Intake: IV Fluids 1543 110 ABX - AZTREONAM 60 55 ABX - FLAGYL 110 55 LR 1373 Oral 350 0 120 Output: MICHI #1 70 40 20 MICHI #2 10 5 10 Urine 0 Other: Estimated Void Large Large # Voids 1 MICHI drain x 24 hours- #1- 120 #2- 17 Physical exam: Abdomen- soft, minimally tender in epigastrum, incision c/d/i, MICHI x 2 with serous fluid A/P: 68 M POD 5 from laparoscopic [facility] patch for perforated gastric ulcer, doing well. - Continue full liquids per patient's request. He does not feel ready to advance today. - IVF: LR @ 200cc/hr, was saline locked yesterday as patient has been having large urine output and is tolerating full liquids - Pain: continue toradol ATC, dilaudid PRN - Abx: continue IV aztreonam and flagyl, will convert to oral antibiotics when patient tolerating more PO. H.pylori still pending - Ppx: continue HSQ and protonix BID - Continue encouraging OOB and ambulation - Dispo: likely home Friday/Friday
--- NOTE | 2019-05-29 14:00 | PN ---
Subjective Date of Service: 05/29/19 Interval History: Pt c/o diarrhea and nausea, pos op abd pain as expected. Today pt bent down to chicken picker his phone, got dizzy and nearly fell. Objective Active Medications: Heparin Sodium (Porcine) (Heparin Vial(*)) 5,000 units SUBCUT Q8HR [facility] Last Admin: 05/29/19 06:27 Dose: 5,000 units Hydromorphone HCl (Dilaudid Inj*) 0.5 mg IV SLOW PU Q4H PRN PRN Reason: PAIN - MODERATE Aztreonam 1 gm/ Sodium (Chloride) 50 mls @ 200 mls/hr IVPB Q8H [facility] Last Admin: 05/29/19 11:22 Dose: 200 mls/hr Metronidazole/Sodium Chloride (Flagyl 500 Mg Ivpb*) 500 mg in 100 mls @ 100 mls /hr IVPB Q8H [facility] Last Admin: 05/29/19 12:36 Dose: 100 mls/hr Ketorolac Tromethamine (Toradol Inj*) 30 mg IV PUSH Q6H PRN PRN Reason: PAIN - MODERATE Last Admin: 05/28/19 17:40 Dose: 30 mg Ondansetron HCl (Zofran Inj*) 4 mg IV Q6H PRN PRN Reason: NAUSEA Last Admin: 05/29/19 09:01 Dose: 4 mg Pantoprazole Sodium (Protonix Iv*) 40 mg IV Q12H [facility] Last Admin: 05/29/19 08:57 Dose: 40 mg Phenol/Menthol (Chloroseptic Throat [place]*) 2 spray MT Q4HR PRN PRN Reason: SORE THROAT Last Admin: 05/26/19 14:30 Dose: 2 oral.spray Polyethylene Glycol/Electrolytes (Miralax*) 17 gm PO DAILY PRN PRN Reason: CONSTIPATION Vital Signs - 8 hr 05/29/19 05/29/19 05/29/19 08:00 08:01 13:00 Temperature 98.3 F 99.1 F Pulse Rate 72 76 Respiratory 18 17 18 Rate Blood Pressure 165/82 148/77 (mmHg) O2 Sat by Pulse 96 95 96 Oximetry 05/29/19 13:30 Temperature 98.1 F Pulse Rate 73 Respiratory 18 Rate Blood Pressure 147/75 (mmHg) O2 Sat by Pulse 95 Oximetry Oxygen Devices in Use Now: Nasal Cannula Appearance: 68 yo M in nAD, aAOx3 Eyes: No Scleral Icterus, PERRLA Ears/Nose/Mouth/Throat: NL Teeth, Lips, Gums, Mucous Membranes Moist Neck: NL Appearance and Movements; NL JVP, Trachea Midline Respiratory: Symmetrical Chest Expansion and Respiratory Effort, Clear to Auscultation Cardiovascular: NL Sounds; No Murmurs; No JVD, RRR Abdominal: - - soft, tender in left uper and lower quadrants, no rebound, no guarding, BS+, post op incisions covered with dressings and not uncovered, 2x MICHI drain with serous fluid noted Lymphatic: No Cervical Adenopathy Extremities: - - mild diffuse upper and lower b/l extr edema Skin: No Nodules or Sclerosis Neurological: Alert and Oriented x 3, NL Muscle Strength and Tone - Nutrition: Malnutrition Diagnosis/Plan Malnutrition Assessment by Registered Dietitian: Malnutrition Assessment Clinical Characteristics Acute,Severe Malnutrition Assessment: 22 lb (13.3%) wt loss x 1 mo Criteria reduced po intake (<50% EEE) x >5 days Malnutrition Assessment: Pt to remain NPO for now. Post-op diet Interventions progression as tolerated. Consider supplements/ snacks if unable to otherwise meet needs. Malnutrition Assessment: Goals 1. pt will tolerate post-op diet progression without adverse GI effects 2. adequate po intake to maintain lean body mass and hydration without add'l wt loss 3. glycemic control within inpatient parameters and without s/sx hypo- or hyperglycemia 4. achieve and maintain serum electrolytes levels WNL 5. achieve and maintain regulated bowel pattern without c/o constipation (or diarrhea) Result Diagrams: 05/29/19 05:14 05/29/19 05:14 Microbiology and Other Data: Microbiology 05/24/19 08:55 Nasal Screen MRSA (PCR) - Final Nasal Mrsa Not Detected Assess/Plan/Problems-Billing Mr Shields is a 68 yo M who has no significant PMHx who presented initally to [place] ER with c/o abdominal pain which acutely worsened while at [place] and was found to have pneumoperitoneum and transferred to [facility] for surgical evaluation. - Patient Problems (1) Perforated gastric ulcer Comment: Pt is POD#4 from [facility] plication of perforated gastric ulcer and abdominal washout. NG tube removed. He is on liquid diet. Continue aztreonam and flagyl until taking po's then change to bactrim and flagyl x7 days. Minimize narcotics as pain improves. Management per general surgery. (2) DVT prophylaxis Comment: SQ heparin Status and Disposition: Thank you for consult. will sign off and see pt prn
[2019-05-29] MEDS: KCL 20 MEQ/100 ML IVPREMIX* 20 MEQ/100 ML BAG IV SCH ×2 (15:20→20:06)
[2019-05-30] MEDS: Aztreonam (*) 1 GM in NS 0.9% 50 ML* 50 ML IVPB SCH ×3 (02:31→17:56)
[2019-05-30] MEDS: metroNIDAZOLE IV 500 MG/100ML* 500 MG/100 ML BAG IVPB SCH ×3 (03:20→21:25)
[2019-05-30] MEDS: Heparin VIAL(*) 5000 UNITS/ML VIAL (FIVE THOUSAND) SUBCUT SCH ×3 (06:03→21:26)
[2019-05-30 06:20] LABS: BUN/Creatinine Ratio 19.8 (8-20); Calcium 8.5 mg/dL (8.6-10.3); EGFR African American 115.4 (>60); EGFR Non-African American 95.3 (>60); Potassium 3.8 mmol/L (3.5-5.0)
[2019-05-30] MEDS: Pantoprazole IV* 40 MG IV SCH ×2 (09:01→21:25)
--- NOTE | 2019-05-30 11:43 | PN ---
Progress Note - Progress Note Date of Service: 05/30/19 Note: Surgery Progress Note S: Patient feels about the same today. He still feels bloated and does not have much of an appetite. He continues to be able to take full liquids. He was coughing last night after using his IS and then had some small amount of emesis that was mostly sputum. 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 Pain is well controlled. Continues to pass flatus. O: Vital Signs - 24 hr 05/29/19 05/29/19 05/29/19 13:00 13:30 14:30 Temperature 99.1 F 98.1 F 98.6 F Pulse Rate 76 73 79 Respiratory 18 18 18 Rate Blood Pressure 148/77 147/75 153/85 (mmHg) O2 Sat by Pulse 96 95 93 Oximetry 05/29/19 05/29/19 05/29/19 15:06 16:00 18:00 Temperature 98.5 F 99.4 F 98.6 F Pulse Rate 83 73 77 Respiratory 16 18 18 Rate Blood Pressure 147/76 159/74 157/84 (mmHg) O2 Sat by Pulse 96 96 96 Oximetry 05/29/19 05/29/19 05/29/19 20:24 20:28 23:54 Temperature 99.2 F 98.8 F Pulse Rate 77 71 Respiratory 16 16 16 Rate Blood Pressure 154/88 147/80 (mmHg) O2 Sat by Pulse 92 95 Oximetry 05/30/19 03:11 Temperature 99.1 F Pulse Rate 72 Respiratory 17 Rate Blood Pressure 159/84 (mmHg) O2 Sat by Pulse 94 Oximetry Laboratory Results - last 24 hr 05/30/19 05:38 Sodium 138 Potassium 3.8 Chloride 110 Carbon Dioxide 24 Anion Gap 4 BUN 16 Creatinine 0.81 Est GFR ( Amer) 115.4 Est GFR (Non-Af Amer) 95.3 BUN/Creatinine Ratio 19.8 Glucose 107 H Calcium 8.5 L Intake & Output 05/29/19 05/30/19 05/30/19 22:59 06:59 14:59 Intake Total 563 407 Output Total 0 1040 Balance 563 -633 Weight 179 lb 11.2 oz Intake: IV Fluids 213 407 ABX - AZTREONAM 55 ABX - FLAGYL 100 D5W 20 meq KCL 90 105 LR 147 NS (0.9%) 123 Oral 350 0 Output: MICHI #1 0 20 MICHI #2 0 20 Urine 1000 Other: Estimated Void Large # Voids 1 Physical exam: Abdomen- soft, non tender, non distended, MICHI x 2 with serous fluid in bulb A/P: 68 M POD 6 from diagnostic laparoscopy and repair of perforated gastric ulcer with omental patch. - Will continue full liquids as patient's episode of emesis yesterday did not seem seem to be postprandial in nature. Will continue to hold IVF as he is having good urine output and volume overload may contribute to ileus. - Continue abx aztreonam and flagyl - Continue HSQ and Protonix - Continue pain control with toradol and diluadid PRN - Patient may need repeat UGI series tomorrow to evaluate transit beyond the gastric repair
[2019-05-30 15:18] LABS: Urine Appearance Clear; Urine Bacteria Absent (Absent); Urine Bilirubin Negative (Negative); Urine Blood Negative (Negative); Urine Color Yellow; Urine Glucose Negative (Negative); Urine Ketones Negative (Negative); Urine Nitrite Negative (Negative); Urine Protein Negative (Negative); Urine Red Blood Cell Trace(0-2/hpf) (Absent); Urine Specific Gravity 1.013 (1.010-1.030); Urine Urobilinogen Negative (Negative); Urine White Blood Cell Trace(0-5/hpf) (Absent)
[2019-05-31] MEDS: Aztreonam (*) 1 GM in NS 0.9% 50 ML* 50 ML IVPB SCH ×2 (02:43→11:47)
[2019-05-31] MEDS: metroNIDAZOLE IV 500 MG/100ML* 500 MG/100 ML BAG IVPB SCH ×2 (04:17→13:21)
[2019-05-31] MEDS: Heparin VIAL(*) 5000 UNITS/ML VIAL (FIVE THOUSAND) SUBCUT SCH (05:51)
[2019-05-31 06:10] LABS: BUN/Creatinine Ratio 16.1 (8-20); Calcium 8.5 mg/dL (8.6-10.3); EGFR African American 106.2 (>60); EGFR Non-African American 87.8 (>60); Potassium 3.7 mmol/L (3.5-5.0)
[2019-05-31] MEDS: Pantoprazole IV* 40 MG IV SCH (09:29)
[2019-05-31 11:33] VITALS: BP 137/72
--- NOTE | 2019-05-31 12:34 | PN ---
Progress Note - Progress Note Date of Service: 05/31/19 SOAP: Subjective: Comfortable in bed, tolerating full liquids with Ensure Enlive. + Flatus, + Liquid BM's Continues to C/O burping, but no vomiting/nausea. Ambulating well in halls[] Objective: Vital Signs Temp 98.6 F 05/31/19 11:20 Pulse 83 05/31/19 11:20 Resp 17 05/31/19 11:20 BP 137/72 05/31/19 11:20 Pulse Ox 97 05/31/19 11:20 Intake & Output 05/30/19 05/31/19 05/31/19 18:59 06:59 18:59 Intake Total 740 150 475 Output Total 75 0 50 Balance 665 150 425 Intake: Oral 740 150 475 Output: MICHI #1 15 0 30 MICHI #2 10 0 20 Estimated Blood Loss 50 Other: Estimated Void Medium Medium Date of Last Bowel 05/30/19 Movement # Bowel Movements 2 Estimated Stool Amount Large # Voids 2 5 PEX:[] CHEST: CTA B/L CVS: RRR ABD: soft, tender near 2 MICHI's Right side Umbilical incision steris in place no erythema EXT: Calves soft non tender Assessment: 68 yo male POD 7 s/p lap terry patch repair of perforated gastric ulcer, tolerating full liquids. patient improved since starting Fulls, IV ABX day 7. [] Plan: Right lower abdominal drain was removed during exam, 2x2 and tegaderm placed, new dressing placed on remaining drain. Will D/C home today on PO Flagyl/Bactrim x 7 days, Prilosec daily, continue full liquids with Ensure Enlive, RTC Dr Banks @ 1:45 PM. Above D/W Dr Banks []
--- NOTE | 2019-05-31 14:38 | PN ---
Progress Note - Progress Note Date of Service: 05/31/19 Note: Subjective Patient is POD 7 s/p lap terry patch repair for perforated gastric ulcer. Patient is doing well and is ready for discharge. He denies nausea or vomiting and is tolerating a full liquid diet. Patient is having loose bowel movements and passing flatus. He had an episode of dizziness over the weekend but has not had any recurrences; he is ambulating well without the walker. Patient has mild abdominal tenderness and discomfort from the site of his drain removal; he still has one MICHI drain in place. Objective Vital Signs Temp 98.6 F 05/31/19 11:20 Pulse 83 05/31/19 11:20 Resp 17 05/31/19 11:20 BP 137/72 05/31/19 11:20 Pulse Ox 97 05/31/19 11:20 Intake & Output 05/30/19 05/31/19 05/31/19 18:59 06:59 18:59 Intake Total 740 150 475 Output Total 75 0 50 Balance 665 150 425 Intake: Oral 740 150 475 Output: MICHI #1 15 0 30 MICHI #2 10 0 20 Estimated Blood Loss 50 Other: Estimated Void Medium Medium Medium Date of Last Bowel 05/30/19 Movement # Bowel Movements 2 Estimated Stool Amount Large # Voids 2 5 5 General: Well appearing and in NAD. Alert and oriented x 3 and able to communicate. He is pleasant and cooperative CV: RRR Lungs: CTA Abdomen: Soft and non distended. Mild tenderness/ discomfort to palpation of area around drain removal. Remaining drain site is clean and dry and without erythema. Drain contains <5ml of clear fluid. Assessment/Plan Patient is POD 7 s/p lap terry patch repair for perforated gastric ulcer. Patient tested positive for H. Pylori and completed dose of abx. He has not taken any pain medication and exhibits only mild tenderness to the site of his MICHI drain removal. The remaining MICHI drain exhibits minimal, clear drainage. He is able to have bowel movements and pass flatus, and is able to tolerate his diet without N/V. Patient is ready for discharge. Continue to monitor for any changes in pain or complications. Patient is scheduled to follow up in the office this . If he experiences any significant pain or complications in the meantime, he should call the office and/or go to the ED immediately.
--- NOTE | 2019-05-31 14:40 | DS ---
Discharge Summary Admit Date:05/24/2019 Discharge Date:05/31/2019 D/C diagnosis: Perforated gastric ulcer (prepyloric) Reason For Admission: Free air in Abdomen Assessment of Condition at Discharge: Stable condition at discharge PEX: Chest: CTA B/L CVS: RRR ABD: Soft, + BS's, Right side tender at MICHI sites EXT: Calves soft non tender LABS: WBC 13.3>12.2>9.0>6.4 Procedures Performed: Diagnostic Laparoscopy with Abdominal Washout, Biopsy of Ulcer, Shaw Plication of Perforated Gastric Ulcer Hospital Course: Patient was transferred here from [facility] on 05/24/19 after presenting with a 2 week history of abdoninal pain, being admitted, then spiking a fever of 104, and having an xray finding of free air under the diapragm. Upon arrival here he was found to have an acute abdomen and was taken to the OR for a diagnostic Laparoscopy, found to have a perforated gastric ulcer, his abdomen was washed out, the ulcer was biopsied, and a shaw plication was performed. Patient was then transferred to the Surgical care unit for post operative management. An NG tube was placed during surgery. Patient received pre and post op IV antibiotics for total of 1 week, immediately post op he had [employer] pain control which was converted to PRN dilaudid (which was not used) & toradol. His NG tube was removed and his diet was slowly advanced to full liquids. He received DVT prophylaxis with sub q heparin. One of his 2 MICHI drains was removed on day of discharge. He was up and ambulating in the halls. His condition continued to improve throughout his stay. He was discharged home with [address], on full liquid diet, and with prescriptions for PO Flagyl TID and BactrimDS BID for 1 week. Follow up appointment with Dr Banks for 06/03/19. Discharge instructions were given to the patient regarding Diet, Medications, Activity, and post operative Follow up. All Questions were answered. Patient seen before discharge by Dr Banks on 05/31/19 with follow up appointment . Discharged Home in Stable Condition on 05/31/2019
[2019-05-31 16:35] LABS: Stool Helicobacter pylori Ag Negative (Negative)
== END 2019-05-31 15:06 | disposition home or self-care (01) | DRG 328 ==
LOC: ICU 07:09 → SSU 17:46
PROVIDERS: ADMIT Surgery; ATTEND Surgery
PROC: 0DB64ZX Excision of Stomach, Percutaneous Endoscopic Approach, Diagnostic (ICD-10-PCS; 2019-05-24)
PROC: 0D9670Z Drainage of Stomach with Drainage Device, Via Natural or Artificial Opening (ICD-10-PCS; 2019-05-24)
PROC: 0DU647Z Supplement Stomach with Autologous Tissue Substitute, Percutaneous Endoscopic Approach (ICD-10-PCS; principal; 2019-05-24 18:00)
DX: K25.5 Chronic or unspecified gastric ulcer with perforation (principal); K66.8 Other specified disorders of peritoneum; R19.7 Diarrhea, unspecified; R11.2 Nausea with vomiting, unspecified; R42 Dizziness and giddiness; K44.9 Diaphragmatic hernia without obstruction or gangrene; K57.30 Diverticulosis of large intestine without perforation or abscess without bleeding; N40.0 Benign prostatic hyperplasia without lower urinary tract symptoms; K64.9 Unspecified hemorrhoids; Z87.442 Personal history of urinary calculi; Z88.1 Allergy status to other antibiotic agents; Z88.0 Allergy status to penicillin; Z88.6 Allergy status to analgesic agent; Z88.8 Allergy status to other drugs, medicaments and biological substances; Z82.0 Family history of epilepsy and other diseases of the nervous system; Z80.0 Family history of malignant neoplasm of digestive organs; Z82.49 Family history of ischemic heart disease and other diseases of the circulatory system; Z87.891 Personal history of nicotine dependence; Z23 Encounter for immunization; Z86.010 Personal history of colon polyps
CPT/HCPCS: 36415; 74018; 74246; 80048; 80053; 81003; 81015; 83690; 85025; 85027; 87086; 87338; 87641; 88305; 88341; 88342; A9270-GY; J0744; J1170; J1644; J1885; J2250; J2405; J2704; J3010; J3480

== ENCOUNTER 2024-03-15 09:13 | Inpatient (IN) ==
[2024-03-15 09:40] LABS: Hematocrit 25.6 % (38-53); Hemoglobin 8.9 g/dL (13.2-16.3); Mean Corpuscular Hemoglobin 32.2 pg (27-33); Mean Corpuscular Hgb Conc 34.9 g/dL (31-36); Mean Corpuscular Volume 92.3 fL (80-97); Mean Platelet Volume 7.9 fL (7.5-11.2); Platelet Count 128 10^3/uL (150-450); Red Blood Count 2.77 10^6/uL (4.06-5.63)
[2024-03-15 09:49] LABS: ABS Neutrophils 0.2 10^3/uL (1.5-7.6)
[2024-03-15 09:57] LABS: Albumin 3.6 g/dL (3.2-5.2); Albumin/Globulin Ratio 1.2 (1-3); Calcium 9.1 mg/dL (8.6-10.3); Creatinine, Serum 1.24 mg/dL (0.67-1.17); Magnesium 1.8 mg/dL (1.9-2.7); Potassium 3.6 mmol/L (3.5-5.0); Total Bilirubin 0.5 mg/dL (0.2-1.0); Total Protein 6.6 g/dL (6.4-8.9); eGFR CKD-EPI 62.2 (>60)
[2024-03-15 10:24] LABS: ABS Lymphocytes 0.3 10^3/uL (1.0-4.8); ABS Monocytes 0.5 10^3/uL (0.0-1.1); Eosinophil % 0.8 %; Nucleated Red Blood Cells % 0.2 %/100WBC (0.0-0.8)
[2024-03-15] MEDS ORDERED: Lidocaine PATCH 5% PATCH TRANSDERM PRN (11:04)
[2024-03-15] MEDS ORDERED: Vancomycin 1,000 MG in NS 0.9% 250 ml 250 ML IVPB ONE (11:16)
[2024-03-15] MEDS ORDERED: Vancomycin per Pharmacy 1 EA NOTE FOLLOW UP SCH (12:00)
[2024-03-15] MEDS: Enoxaparin 40 MG/0.4 ML SYR SUBCUT SCH (15:24)
[2024-03-15] MEDS: NS 0.9% 1000 ml BAG 1,000 ML IV SCH (15:26)
[2024-03-15] MEDS ORDERED: Magnesium Hydroxide LIQ 30 ML UDC PO PRN (15:51)
[2024-03-15] MEDS: Cefepime 2 GM in Dextrose 2 GM/50 ML BAG IV SCH ×2 (16:12→19:41)
[2024-03-15] MEDS: Aztreonam 2 GM in NS 0.9% 100 ml BAG 100 ML IV SCH (17:08)
[2024-03-15] MEDS: Vancomycin 1,250 MG in NS 0.9% 250 ml 250 ML IVPB ONE (17:08)
[2024-03-15 18:11] LABS: Urine Appearance Clear; Urine Bilirubin Negative (Negative); Urine Blood Negative (Negative); Urine Color Yellow; Urine Glucose Negative (Negative); Urine Ketones Negative (Negative); Urine Nitrite Negative (Negative); Urine Protein Trace (Negative); Urine Specific Gravity 1.022 (1.002-1.030); Urine Urobilinogen Negative (Negative); Urine pH 5.5 (5.0-8.0)
[2024-03-15] MEDS ORDERED: Magic MouthWash1-BEN/MAAL/LIDO 180 ML BTL SWISH SPIT PRN (18:53)
[2024-03-15] MEDS: Iodixanol (CONTRAST) 320 MG/ML 100 ML SDV IV ONE (20:36)
[2024-03-15] MEDS: metroNIDAZOLE IV 500 MG/100ML 500 MG/100 ML BAG IVPB SCH (20:47)
[2024-03-16 05:05] LABS: Hematocrit 21.7 % (38-53); Hemoglobin 7.4 g/dL (13.2-16.3); Mean Corpuscular Hemoglobin 31.6 pg (27-33); Mean Corpuscular Hgb Conc 33.9 g/dL (31-36); Platelet Count 129 10^3/uL (150-450); Red Blood Count 2.33 10^6/uL (4.06-5.63); Red Cell Distribution Width 20.5 % (12-17); White Blood Count 1.4 10^3/uL (3.6-10.2)
[2024-03-16] MEDS: Vancomycin 750 MG in NS 0.9% 250 ML IVPB SCH (05:06)
[2024-03-16 05:42] LABS: Albumin 3.2 g/dL (3.2-5.2); Albumin/Globulin Ratio 1.6 (1-3); Creatinine, Serum 1.25 mg/dL (0.67-1.17); Total Bilirubin 0.5 mg/dL (0.2-1.0); Total Protein 5.2 g/dL (6.4-8.9); eGFR CKD-EPI 61.6 (>60)
[2024-03-16 07:32] LABS: ABS Lymphocytes 0.4 10^3/uL (1.0-4.8); ABS Monocytes 0.6 10^3/uL (0.0-1.1); ABS Neutrophils 0.4 10^3/uL (1.5-7.6); Anisocytosis 1+; Eosinophil % 0.5 %; Lymphocyte % 27.2 %; Nucleated Red Blood Cells % 0.1 %/100WBC (0.0-0.8)
[2024-03-17 05:36] LABS: Hematocrit 20.4 % (38-53); Hemoglobin 7.1 g/dL (13.2-16.3); Mean Corpuscular Hemoglobin 32.1 pg (27-33); Mean Corpuscular Hgb Conc 34.8 g/dL (31-36); Mean Corpuscular Volume 92.2 fL (80-97); Platelet Count 129 10^3/uL (150-450); Red Blood Count 2.22 10^6/uL (4.06-5.63); Red Cell Distribution Width 20.1 % (12-17); White Blood Count 1.8 10^3/uL (3.6-10.2)
[2024-03-17 05:44] LABS: Creatinine, Serum 1.09 mg/dL (0.67-1.17); Potassium 3.7 mmol/L (3.5-5.0); eGFR CKD-EPI 72.6 (>60)
[2024-03-17 08:05] LABS: ABS Lymphocytes 0.3 10^3/uL (1.0-4.8); ABS Monocytes 0.7 10^3/uL (0.0-1.1); Anisocytosis 1+; Eosinophil % 0.3 %; Lymphocyte % 16.1 %; Nucleated Red Blood Cells % 0.1 %/100WBC (0.0-0.8)
[2024-03-17 08:40] LABS: ABS Neutrophils 0.8 10^3/uL (1.5-7.6)
[2024-03-17] MEDS: Vancomycin Trough Check NOTE FOLLOW UP ONE (08:50)
[2024-03-17] MEDS: Vancomycin 1000 MG in NS 0.9% 250 ML IVPB SCH (09:18)
[2024-03-17] MEDS: Senna TAB 8.6 mg TAB PO PRN (11:28)
[2024-03-18 05:45] LABS: Hematocrit 21.8 % (38-53); Hemoglobin 7.5 g/dL (13.2-16.3); Mean Corpuscular Hemoglobin 31.8 pg (27-33); Mean Corpuscular Hgb Conc 34.3 g/dL (31-36); Mean Corpuscular Volume 92.8 fL (80-97); Mean Platelet Volume 8.5 fL (7.5-11.2); Platelet Count 171 10^3/uL (150-450); Red Blood Count 2.35 10^6/uL (4.06-5.63); Red Cell Distribution Width 20.2 % (12-17); White Blood Count 2.1 10^3/uL (3.6-10.2)
[2024-03-18 07:12] LABS: eGFR CKD-EPI 80.5 (>60)
[2024-03-18 07:25] LABS: ABS Lymphocytes 0.4 10^3/uL (1.0-4.8); ABS Monocytes 0.8 10^3/uL (0.0-1.1); ABS Neutrophils 0.9 10^3/uL (1.5-7.6); Anisocytosis 1+; Eosinophil % 0.4 %; Lymphocyte % 18.4 %; Nucleated Red Blood Cells % 0.1 %/100WBC (0.0-0.8); Polychromasia 1+
[2024-03-18] MEDS: Alteplase (CATHFLO) 2 MG VIAL IV ONE (14:06)
[2024-03-19 01:17] LABS: Anaplasma phagocytophilum Negative (Negative); B. miyamotoi PCR, B Negative (Negative); Babesia divergens/MO-1 Negative (Negative); Babesia ducani Negative (Negative); Ehrlichia chaffeensis Negative (Negative); Ehrlichia ewingii/canis Negative (Negative); Ehrlichia muris eauclairensis Negative (Negative)
[2024-03-19 05:48] LABS: Hematocrit 24.6 % (38-53); Hemoglobin 8.3 g/dL (13.2-16.3); Mean Corpuscular Hemoglobin 31.1 pg (27-33); Mean Corpuscular Hgb Conc 33.7 g/dL (31-36); Mean Corpuscular Volume 92.4 fL (80-97); Mean Platelet Volume 7.8 fL (7.5-11.2); Platelet Count 209 10^3/uL (150-450); Red Blood Count 2.66 10^6/uL (4.06-5.63); Red Cell Distribution Width 20.5 % (12-17); White Blood Count 3.1 10^3/uL (3.6-10.2)
[2024-03-19 06:00] LABS: Calcium 8.6 mg/dL (8.6-10.3); Creatinine, Serum 1.04 mg/dL (0.67-1.17); Magnesium 1.6 mg/dL (1.9-2.7); Potassium 3.7 mmol/L (3.5-5.0); eGFR CKD-EPI 76.8 (>60)
[2024-03-19 07:34] LABS: ABS Lymphocytes 0.3 10^3/uL (1.0-4.8); ABS Monocytes 0.9 10^3/uL (0.0-1.1); ABS Neutrophils 1.8 10^3/uL (1.5-7.6); Eosinophil % 0.3 %; Lymphocyte % 11.2 %; Nucleated Red Blood Cells % 0.1 %/100WBC (0.0-0.8)
[2024-03-19] MEDS: Vancomycin Trough Check NOTE FOLLOW UP ONE (09:18)
[2024-03-19 09:44] VITALS: BP 122/88
[2024-03-19 10:03] LABS: Creatinine, Serum 0.99 mg/dL (0.67-1.17); Vancomycin Trough 13.5 mcg/mL; eGFR CKD-EPI 81.4 (>60)
== END 2024-03-19 13:25 | disposition home or self-care (01) | DRG 809 ==
LOC: CHOA 09:13 → MED 10:57
PROVIDERS: ADMIT Internal Medicine Hematology & Oncology; ATTEND Internal Medicine Hematology & Oncology